=== PATIENT | female | born 1945 | race Caucasian/White ===

== ENCOUNTER 2018-04-30 08:51 | Day surgery (SDC) | payer MEDICARE ==
[~2018-04-30] VITALS: Ht 157.5 cm; Wt 55.3 kg
[2018-04-30] VITALS (11 sets, daily range): BP systolic 143–167; BP diastolic 63–91
[~2018-04-30 08:51] MED LIST: ASPI81TA52 PO; BUSP10TA11 PO; DOCU-286 PO; EZET10TA13 PO; FENO135C PO; FENT-90 TOP; FENT1PAT7 TOP; GABA-532 PO; GLUC-99 PO; IMIP10TA26 PO; KRIL1CAP PO; LACT10SO PO; LACT10SO6 PO; LEVO50TA8 PO; LUBI24CA5 PO; MODA200T25 PO; MULT-933 PO; NALO12.5 PO; ONDA8TAB9 PO; OXYC30TA85 PO; PANT40TA4 PO; PROP20TA6 PO; QUET50TA PO; SERT100T PO; SMZ-TMP DS PO; SOLI5TAB2 PO; VENL100T4 PO
[2018-04-30] MEDS ORDERED: LIDOcaine 1% 30ml preserv. free vial SQ ONE (09:00)
[2018-04-30] MEDS ORDERED: albumin 25% 50mL bottle X 2 BOTTLES IV ONE (09:10)
== END 2018-04-30 11:45 | disposition home or self-care (01) ==
LOC: SSTAY O 08:51
PROVIDERS: ATTEND Radiology Diagnostic Radiology
DX: R18.8 Other ascites (principal); K74.60 Unspecified cirrhosis of liver; I49.9 Cardiac arrhythmia, unspecified; M19.90 Unspecified osteoarthritis, unspecified site; Z79.82 Long term (current) use of aspirin; Z79.899 Other long term (current) drug therapy; Z96.642 Presence of left artificial hip joint; Z98.890 Other specified postprocedural states
CPT/HCPCS: 49083; J3490; P9047